=== PATIENT | female | born 1950 | race Caucasian/White ===

== ENCOUNTER → 2016-12-01 | Outpatient (CLI) | payer OTHER ==
[~2016-12-01] MED LIST: BP PILL; OMEP40CA PO; SERT50TA PO
--- NOTE | 2016-12-02 07:44 | MAMMOGRAPHY REPORT ---
BILATERAL DIGITAL SCREENING MAMMOGRAM WITH CAD: 12/01/2016 CLINICAL HISTORY: Routine screening. Patient has no complaints. TECHNIQUE: Bilateral CC, MLO and repeat right cc views were obtained. Current study was also evaluat ed with a Computer Aided Detection (CAD) system. COMPARISON: Comparison is made to exams dated: 11/29/2015 mammogram, 11/27/2014 mammogram, 11/24/2013 mamm ogram, 10/26/2012 mammogram, 10/22/2011 mammogram, and 10/14/2010 mammogram - [facility] BREAST COMPOSITION: The tissue of both breasts is almost entirely fatty. FINDINGS: There is stable focal asymmetry in the upper outer anterior right breast. Scattered benign -appearing punctate microcalcifications. No suspicious mass, architectural distortion or cluster of microcalcifications is seen. IMPRESSION: ACR BI-RADS CATEGORY 1: NEGATIVE There is no mammographic evidence of malignancy. A 1 year screening mammogram is recommended. The pa tient will receive written notification of the results. Approximately 10% of breast cancers are not detected with mammography. A negative mammographic report should not delay biopsy if a clinically suggestive mass is present. Ritika Green M.D. ay/:12/01/2016 15:30:24 Bacteriologist Dairy: Raquel Engel, [facility] letter sent: Normal 1/2 BI-RADS Code: ACR BI-RADS Category 1: Negative
== END | disposition home or self-care (01) ==
LOC: C.MAMM 10:37
PROVIDERS: ATTEND Obstetrics & Gynecology
DX: Z12.31 Encounter for screening mammogram for malignant neoplasm of breast (principal)

== ENCOUNTER → 2016-12-30 | Outpatient (CLI) | payer OTHER ==
[2016-12-30 14:02] LABS: BASO % 0.4 %; BASO ABS # 0.02 K/uL (0-0.2); COMPLETE YES; EOS % 1.8 %; HEMATOCRIT 39.1 % (37-47); IG% 0.2 %; LYMPH % 37.5 %; LYMPH ABS # 2.13 K/uL (1.2-3.4); MEAN CELL VOLUME 82.1 fL (80-100); MEAN CORPUSCULAR HEMOGLOBIN 27.1 pg (25-34); MEAN PLATELET VOLUME 9.8 fL (7.4-10.4); MONO % 6.9 %; NEUT % 53.2 %; PLATELET COUNT 175 K/uL (130-400); RED BLOOD COUNT 4.76 M/uL (4.2-5.4); WHITE BLOOD COUNT 5.68 K/uL (4.8-10.8)
[2016-12-30 14:17] LABS: ESTIMATED AVERAGE GLUCOSE 105 mg/dl; HA1C FLAG Normal (Normal)
[2016-12-30 14:31] LABS: ALT/SGPT 22 U/L (12-78); AST/SGOT 15 U/L (15-37); BLOOD UREA NITROGEN 12 mg/dl (7-18); BUN/CREATININE RATIO 13.3 (10-20); CALCIUM 9.5 mg/dl (8.5-10.1); CARBON DIOXIDE 28 mmol/L (21-32); CHLORIDE 107 mmol/L (98-107); CHOLESTEROL 208 mg/dl (0-200); CREATININE 0.92 mg/dl (0.60-1.20); GLUCOSE 104 mg/dl (70-99); POTASSIUM 3.9 mmol/L (3.5-5.1); SODIUM 142 mmol/L (136-145); TRIGLYCERIDES 189 mg/dl (0-150); VERY LOW DENSITY LIPOPROT CALC 38 mg/dl
[2016-12-30 14:42] LABS: ALKALINE PHOSPHATASE 92 U/L (45-117); CHOLESTEROL/HDL RATIO 4.2; HDL CHOLESTEROL 50 mg/dl; LDL CHOLESTEROL CALCULATED 120 mg/dl
--- NOTE | 2017-01-13 06:37 | CODING QUERY MEDICAL NECESSITY ---
SUPPORTING DIAGNOSIS NEEDED Dr. Ruiz, A supporting diagnosis is required for the test/procedure performed on this patient in order for us to be reimbursed by the patient's insurance. Please provide a supporting diagnosis for the following test/procedure listed below next to the test name along with your signature. *If there is no additional diagnosis for this patient that would support the following test/procedure please document that below next to the test/procedure. Test(s)/Procedure(s) that require a supporting diagnosis: * 54360 GLYCATED HEMOGLOBIN DIAGNOSIS: DATE OF SERVICE: 12/30/16 Provider Signature: Date: Thank you Luis Antonio Marquez [facility] Information Management Once completed, please kindly fax back to [phone] For questions please call [phone]
== END | disposition home or self-care (01) ==
LOC: C.LABBC 09:48
PROVIDERS: ATTEND Internal Medicine
DX: E55.9 Vitamin D deficiency, unspecified (principal); R73.01 Impaired fasting glucose

== ENCOUNTER → 2017-01-19 | Outpatient (CLI) | payer OTHER ==
--- NOTE | 2017-01-19 12:19 | DIAGNOSTIC IMAGING REPORT ---
L KNEE 3 VIEWS HISTORY: 66 years-old Female Osteoarthritis of left kneeleft acute left knee pain for 2 months. Initial exam. COMPARISON: None available. TECHNIQUE: 3 views of the left knee. FINDINGS: Bones are mildly demineralized. Mild tricompartmental osteoarthritis is noted, most pronounced in the medial and patellofemoral compartments. There is spurring of the superior patella at the quadriceps insertion site. There is a small joint effusion. No acute fracture or dislocation. IMPRESSION: 1. No acute fracture or dislocation. 2. Small joint effusion with mild tricompartmental osteoarthritis. The above report was generated using voice recognition software. It may contain grammatical, syntax or spelling errors. Electronically signed by: Richie Mercedes M.D. 01/19/2017 12:18 PM Dictated Date/Time: 01/19/2017 12:17 PM
== END | disposition home or self-care (01) ==
LOC: C.RADBC 11:56
PROVIDERS: ATTEND Internal Medicine
DX: M17.12 Unilateral primary osteoarthritis, left knee (principal)

== ENCOUNTER → 2017-12-03 | Outpatient (CLI) | payer OTHER ==
--- NOTE | 2017-12-03 15:28 | MAMMOGRAPHY REPORT ---
BILATERAL DIGITAL SCREENING MAMMOGRAM TOMOSYNTHESIS WITH CAD: 12/03/2017 CLINICAL HISTORY: Routine screening. Patient has no complaints. TECHNIQUE: The study was acquired using full field digital technology and interpreted from soft copy. Breast tomosynthesis in addition to standard 2D mammography was performed. Current study was also ev aluated with a Computer Aided Detection (CAD) system. COMPARISON: Comparison is made to exams dated: 12/01/2016 mammogram, 11/29/2015 mammogram, 11/27/2014 mamm ogram, 10/26/2012 mammogram, and 10/14/2010 mammogram - [facility]. BREAST COMPOSITION: The tissue of both breasts is almost entirely fatty. FINDINGS: No suspicious masses, calcifications, or areas of architectural distortion are noted in either breast . There has been no significant interval change compared to prior exams. Scattered bilateral benign-a ppearing calcifications are not significantly changed. Asymmetry in the right superior anterior esvin st is stable compared to prior exams. IMPRESSION: ACR BI-RADS CATEGORY 2: BENIGN There is no mammographic evidence of malignancy. A 1 year screening mammogram is recommended.( [id number]) The patient will receive written notification of the results. Some breast cancers are not detected with mammography. A negative mammographic report should not pauline y biopsy if a clinically suggestive mass is present. Roseanna Montana M.D. /:12/03/2017 14:22:53 County Records Management Officer: RT Benji(Bertha)(M), [facility] letter sent: Normal 1/2 BI-RADS Code: ACR BI-RADS Category 2: Benign
== END | disposition home or self-care (01) ==
LOC: C.MAMM 10:33
PROVIDERS: ATTEND Obstetrics & Gynecology
DX: Z12.31 Encounter for screening mammogram for malignant neoplasm of breast (principal)

== ENCOUNTER 2018-11-01 11:48 | Inpatient (IN) ==
--- NOTE | 2018-10-07 15:34 | PAT Medication Instructions ---
Medication Instructions Date of Service October 07, 2018 Home Medications cholecalciferol (vitamin D3) [Vitamin D3] 4 tab PO QAM cyanocobalamin (vitamin B-12) [Vitamin B-12] 1,000 mcg PO QAM lisinopril-hydrochlorothiazide 0.5 tab PO QAM omeprazole 40 mg PO QAM sertraline 50 mg PO QAM rosuvastatin [Crestor] 10 mg PO QAM DO NOT take the morning of surgery cholecalciferol (vitamin D3) [Vitamin D3] 4 tab PO QAM cyanocobalamin (vitamin B-12) [Vitamin B-12] 1,000 mcg PO QAM lisinopril-hydrochlorothiazide 0.5 tab PO QAM Take morning of surgery With a small sip of water, OTHERWISE NOTHING TO EAT OR DRINK AFTER MIDNIGHT: omeprazole 40 mg PO QAM sertraline 50 mg PO QAM rosuvastatin [Crestor] 10 mg PO QAM Other Notes If you have any questions please call us at [phone] or [phone] or [phone] or [phone]
--- NOTE | 2018-10-10 12:16 | Anesthesiology Consultation ---
Date of Service October 10, 2018 Assessment & Plan (1) Encounter for pre-operative examination: Discussed B/L versus staged TKA with patient; patient wishes to proceed with B/L TKA. Chart Review Chart Review: Acceptable Risk for Surgery and Patient seen in Pre Admission Testing Teaching & Discussion Pre-Anesthesia Teaching/Discussion Notes: Instructed NPO after midnight before surgery,except medications with 15 cc of water. Medication instructions provided according to the PAT guidelines. History Surgery Operation Date: 11/01/18 13:55 Proposed Procedures p Bilateral Total Knee Replacements - Navarro Smiley DO Height/Weight Height: 5 ft 3.5 in Weight: 99.2 kg Allergies Allergy/AdvReac Type Severity Reaction Status Date / Time Sulfa (Sulfonamide Allergy Intermediate HIVES Verified 10/04/18 08:52 Antibiotics) adhesive Allergy Mild Rash Verified 10/04/18 08:53 nickel Allergy Mild RASH, EAR Verified 10/10/18 12:16 SORENESS Additional Notes: *Surgeon/OR made aware of nickel allergy* Medications Home Medications Medication Instructions Recorded Confirmed Last Taken cholecalciferol (vitamin D3) 4 tab PO QAM 04/13/18 10/04/18 Unknown [Vitamin D3] cyanocobalamin (vitamin B-12) 1,000 mcg PO QAM 04/13/18 10/04/18 Unknown [Vitamin B-12] lisinopril-hydrochlorothiazide 0.5 tab PO QAM 04/13/18 10/04/18 Unknown omeprazole 40 mg PO QAM 04/13/18 10/04/18 Unknown sertraline 50 mg PO QAM 04/13/18 10/04/18 Unknown rosuvastatin [Crestor] 10 mg PO QAM 10/04/18 10/04/18 Unknown Past Medical History Medical History Anxiety Cancer SKIN (BACK); NO CHEMO OR RADIATION Depression GERD (gastroesophageal reflux disease) CONTROLLED Hiatal hernia Hyperlipidemia Hypertension Osteoarthritis Sleep apnea CPAP Exercise / Class Metabolic Activity III < 4 Walking/Shop/Light housework (USES CANE PRN) Past Surgical History Surgical History History of section x1 History of esophagogastroduodenoscopy (EGD) History of open reduction and internal fixation (ORIF) procedure LEFT ANKLE Hx of arthroscopy of left knee 05/05/18: LMA#4 at [facility] Hx of colonoscopy Past Anesthesia History No Hx of Anesthesia Complications and No Family Hx of Anesthesia Complications History of PONV No Hx of PONV and No Hx of Motion Sickness Social History Smoking Status: Never smoker Do You Dip or Chew Tobacco: No Hx Alcohol Use: Yes Alcohol type: wine alcohol intake frequency: holidays/special occasions only Hx Substance Use: No substance use type: does not use Review of Systems Reflux controlled. Patient denies chest pain, shortness of breath, cough, wheezing, palpitations. Physical Exam Vital Signs VITALS BP 133/81 P 63 TEMP 98.6 SP02 95%RA RESP 16 PHYSICAL Full neck and c-spine range of motion. Full TMJ range of motion. TMD 3 finger breaths Mallampati Score 3 Dentition: intact Lungs: clear throughout to auscultation Cardiac: regular rate and rhythm, no murmurs noted Spine: normal Carotid arteries: negative bruit Extremities: no edema Testing Laboratory Results 10/10/18 12:37 10/10/18 12:37 PT 10.7 Seconds (9.0-12.0) 10/10/18 12:37 INR 1.0 (0.9-1.1) 10/10/18 12:37 APTT 25.2 Seconds (21.0-31.0) 10/10/18 12:37 Blood Type O Positive 10/10/18 12:37 Antibody Screen NEGATIVE 10/10/18 12:37 Electrocardiogram Date: 04/21/18 NSR at 75bpm. NS STA. Chest X-Ray Date: 10/10/18 Findings: + NAD Atherosclerosis of the aortic arch. Calcified granuloma in the periphery of the right upper lung.
--- NOTE | 2018-10-10 13:03 | XRay Report ---
XR chest Pre-admission PA/Lat CLINICAL HISTORY: 67 years-old Female presenting with preoperative evaluation. TECHNIQUE: PA and lateral views of the chest were obtained. COMPARISON: 06/11/2014. FINDINGS: Atherosclerosis of the aortic arch. Cardiac silhouette normal in size. Calcified granuloma in the per iphery of the right upper lung. Lungs and pleural spaces otherwise clear. Degenerative changes of the thoracic spine. Upper abdomen normal. IMPRESSION: 1. No acute cardiopulmonary disease. Electronically signed by: Brady Black M.D. 10/10/2018 1:02 PM
[2018-10-10 13:04] LABS: Basophils # (auto) 0.02 K/uL (0-0.2); Basophils % (auto) 0.4 %; Eosinophils # (auto) 0.04 K/uL (0-0.5); Eosinophils % (auto) 0.7 %; Hematocrit (blood only) 37.3 % (37-47); Hemoglobin 12.4 g/dL (12.0-16.0); Lymphocytes # (auto) 2.05 K/uL (1.2-3.4); Lymphocytes % (auto) 36.2 %; Mean Corpuscular Hgb Conc 33.2 g/dL (32-36); Mean Corpuscular Volume 82.3 fL (80-100); Mean Platelet Volume 9.9 fL (7.4-10.4); Monocytes # (auto) 0.36 K/uL (0.11-0.59); Monocytes % (auto) 6.4 %; Neutrophils # (auto) 3.19 K/uL (1.4-6.5); Neutrophils % (auto) 56.3 %; Platelet Count 164 K/uL (130-400); RDW Coefficient of Variation 14.1 % (11.5-14.5); RDW Standard Deviation 42.6 fL (36.4-46.3); Red Blood Count 4.53 M/uL (4.2-5.4); White Blood Count 5.66 K/uL (4.8-10.8)
[2018-10-10 13:11] LABS: BUN Creatinine Ratio 16.8 (10-20); Calcium 9.5 mg/dl (8.5-10.1); Creatinine Clr Calc Pharmacy 64.5 ml/min; Est GFR (African American) 70.9; Est GFR (Non-African American) 61.2; Potassium 4.1 mmol/L (3.5-5.1)
[2018-10-10 13:16] LABS: Partial Thromboplastin Ratio 0.9; Partial Thromboplastin Time 25.2 Seconds (21.0-31.0); Prothrombin Time 10.7 Seconds (9.0-12.0)
--- NOTE | 2018-10-31 16:50 | History & Physical Report ---
Date of Service October 31, 2018 Assessment & Plan (1) Osteoarthritis of both knees: We will proceed with bilateral total knee arthroplasties. Postoperatively she will be kept overnight in the hospital for postop medical management. She plans to go to [facility] rehab after she is discharged from the hospital and then use [facility] physical therapy afterwards. Present on Admission?: Yes History of Present Illness Chief Complaint: Primary osteoarthritis of bilateral knees Primary Care Provider: Brady Ruiz MD Macey is a pleasant 67-year-old female who is been dealing with chronic increasing bilateral knee pain. I did a left knee arthroscopy on her about 6 months ago. During that time it showed a lot of osteoarthritis of the knee. The arthritis during the knee scope has looked worse than the arthritis on the x-rays. Both her knees feel similar. She is having trouble living with her knees at this point. She has elected to proceed with bilateral total knee arthroplasties. Allergies Allergy/AdvReac Type Severity Reaction Status Date / Time Sulfa (Sulfonamide Allergy Intermediate HIVES Verified 10/04/18 08:52 Antibiotics) adhesive Allergy Mild Rash Verified 10/04/18 08:53 nickel Allergy Mild RASH, EAR Verified 10/10/18 12:16 SORENESS Home Medications Home Medications Medication Instructions Recorded Confirmed Type cholecalciferol (vitamin D3) 4 tab PO QAM 04/13/18 10/04/18 History [Vitamin D3] cyanocobalamin (vitamin B-12) 1,000 mcg PO QAM 04/13/18 10/04/18 History [Vitamin B-12] lisinopril-hydrochlorothiazide 0.5 tab PO QAM 04/13/18 10/04/18 History omeprazole 40 mg PO QAM 04/13/18 10/04/18 History sertraline 50 mg PO QAM 04/13/18 10/04/18 History rosuvastatin [Crestor] 10 mg PO QAM 10/04/18 10/04/18 History Past Med/Surg History Medical History Anxiety Cancer SKIN (BACK); NO CHEMO OR RADIATION Depression GERD (gastroesophageal reflux disease) CONTROLLED Hiatal hernia Hyperlipidemia Hypertension Osteoarthritis Sleep apnea CPAP Surgical History History of section x1 History of esophagogastroduodenoscopy (EGD) History of open reduction and internal fixation (ORIF) procedure LEFT ANKLE Hx of arthroscopy of left knee 05/05/18: LMA#4 at [facility] Hx of colonoscopy Social History Preferred Language: Irish Communication Ability: Effective 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 Beliefs That Will Affect Care: None Current Living Situation: Alone Other Information That Helps Us Care for You: No Feels Safe at Home: Yes Safety Concerns: Feels Safe At This Time Smoking Status: Never smoker Do You Dip or Chew Tobacco: No Second Hand Exposure: No Tobacco Cessation Education Requested by Patient: No Hx Alcohol Use: Yes Alcohol type: wine Hx Substance Use: No Review of Systems All systems reviewed & are unremarkable except as noted in HPI & below Physical Exam Constitutional: WD/WN, vitals as above Eyes: PERRL, conjunctivae normal, anicteric sclerae ENMT: external ear and nose normal, oropharynx normal Neck: trachea midline, no thyromegaly Respiratory: normal respiratory effort Cardiovascular: RRR, no murmur, no edema Gastrointestinal (Abdomen): normal bowel sounds, soft, nontender, no hepatosplenomegaly Musculoskeletal: Physical examination of both knees are similar. There is a trace effusion. There is near full range of motion and no evidence of inst ability. There is significant tenderness palpation along mostly the medial joint line and distal medial femoral condyles. Psychiatric: A+Ox3, euthymic affect Results & Data Diagnostic Findings Radiographs of both knees demonstrate advanced osteoarthritis with joint space narrowing osteophyte formation and [id number] articulation.
--- NOTE | 2018-11-01 11:42 | History & Physical Bridge Note ---
Date of Service November 01, 2018 History & Physical Bridge Note I have examined the patient, reviewed the History & Physical and in the interval since the performance of the History & Physical I have noted the following changes of clinical significance: no changes noted
[~2018-11-01 11:48] MED LIST changes: +ACETAMINOPHEN 500 MG TAB PO SCH; -BP PILL; +BUPIVACAINE 0.5 % 5 MG/1 ML PF 10ML VIAL ONE; +CEFAZOLIN 2000MG 2,000 MG/15 ML SYR IV SCH; +FAMOTIDINE 20 MG TAB PO SCH; +GABAPENTIN 900 MG DOSE PO SCH; +LIDOCAINE HCL 2% 2 ML VIAL/AMP(20MG/ML) INFIL ONE; +LR 500ML BOLUS IV SCH; +LR 500ML BOLUS, THEN 15ML/HR IV SCH; +LR 60ML/HR IV SCH; +MIDAZOLAM HCL 1 MG/ML 2ML VIAL ONE; -OMEP40CA PO; +PROPOFOL IV EMULSION 10 MG/ML 20 ML VIAL IV ONE; +ROPIVACAINE 0.5% 5 MG/ML 30 ML VIAL ONE; +ROPIVACAINE 0.5% HCL/PF 150 MG, BUPIVACAINE 0.5% MPF 30 ML, EPINEPHrine 30MG/30ML (OR U... INSTIL SCH; -SERT50TA PO; +TRANEXAMIC ACID 1,000 MG **IV Intra-op IV SCH; +TRANEXAMIC ACID 1,000 MG **IV Pre-op IV SCH; +fentaNYL citrate 100 MCG/2 ML VIAL ONE
[2018-11-01] MEDS ORDERED: ORTHO JOINT ANESTHETIC ONE (11:59)
[2018-11-01] MEDS ORDERED: ONDANSETRON INJ 2 MG/ML 2 ML VIAL ONE (12:05)
[2018-11-01] MEDS ORDERED: DEXAMETHASONE SOD INJ 4 MG/ML VIAL ONE (12:05)
[2018-11-01] MEDS ORDERED: ONDANSETRON INJ 2 MG/ML 2 ML VIAL IV PRN ×2 (12:56→17:48)
[2018-11-01] MEDS ORDERED: ATROPINE SULFATE 0.1 MG/ML 10ML SYR IV PRN (12:56)
[2018-11-01] MEDS ORDERED: ePHEDrine sulfate 50 MG/ML AMP IV PRN (12:56)
[2018-11-01] MEDS ORDERED: fentaNYL citrate 100 MCG/2 ML VIAL IV PRN (12:56)
[2018-11-01] MEDS ORDERED: PROPOFOL IV EMULSION 10 MG/ML 20 ML VIAL IV ONE ×4 (13:42→15:49)
[2018-11-01] MEDS ORDERED: ePHEDrine sulfate 50 MG/ML SYR ONE (13:59)
[2018-11-01] MEDS ORDERED: PHENYLEPHRINE 100MCG/ML 5ML SYR ONE (13:59)
--- NOTE | 2018-11-01 16:12 | Operative Report ---
Post Operative Report Pre & Post Diagnosis Operation Date: 11/01/18 13:55 Pre-Op Diagnosis: Bilateral Knee Degenerative Joint Disease Post-Op Diagnosis: Bilateral Knee Degenerative Joint Disease Procedure Operation Date: 11/01/18 13:55 Actual Procedures p Bilateral Total Knee Replacements(Bilateral) - Navarro Smiley DO Surgeon Navarro Smiley DO Geriatric Care Manager Navarro Lombardo PAC Estimated Blood Loss 50 Findings Consistent with Post-Op Diagnosis Specimens Femoral and tibial bone bilateral knees Complications none Disposition Disposition: Recovery Room Indications Macey is a pleasant 67-year-old female who is been dealing with chronic increasing bilateral knee pain. X-rays and clinical examination have been diagnostic for osteoarthritis of both knees. After failing conservative treatment, she elected to proceed with bilateral total knee arthroplasties. Description of Procedure Implants used: I used a [employer] Vanguard total knee arthroplasty system with a size 62.5 femur, 67 tibia, 31 patella, and a size 12 polyethylene bearing on the right and a size 10 polyethylene bearing on the left. All components were cemented in place with Palacos G cement. The patient arrived [facility] for the above procedure. There were seen in the preoperative holding area and the operative extremity was identified and signed. There were given a preoperative antibiotic, a spinal anesthetic and an adductor nerve block. There were taken back to the operating room and laid on the table in supine position. There were given basic sedation. Both knees were then prepped and draped in sterile fashion. A timeout was done, and the patient and the operative extremity was properly identified. The right knee was done first. A midline incision was made directly over the patella. Dissection was taken down to the extensor mechanism. A subvastus arthrotomy was used. The medial retinaculum was released and the fat pad was mostly left intact. The knee was flexed and the ACL, PCL, and meniscus were removed. A drill was sent down the center of the femoral canal followed by an intramedullary bill. Off that bill a distal femoral cutting block was placed. 9 mm was resected off the distal femur at 5 of valgus. A posterior referencing AP sizing guide was then placed on the distal femur. The femur measured to be a size 62.5. 2 drill holes were placed in 3 of external rotation. A 4-in-1 cut ting block was then impacted into place. Anterior posterior and chamfer cuts were then made. The posterior stabilizing box guide was then impacted into place and the box was resected for the posterior stabilizing component. The proximal tibia was then exposed. A drill was sent down the center of the tibial canal followed by an intramedullary bill. Off that bill a proximal tibial resection guide was placed. The proximal tibia was then resected. The tibia measured to be a size 67. The tibial plate was then placed in the appropriate rotation and the tibia was punched. The posterior aspect of the knee was then opened up and any additional meniscus fragments and osteophytes were removed. Trial components were then placed. I used a size 12 mm polyethylene insert. The knee was brought through a full range of motion and felt to be stable. The patella was then everted and 8 mm was resected off the posterior aspect of the patella. The patella measured to be a size 31. 3 peg holes were then drilled. A trial patella was placed. The knee was once again brought through a full range of motion and felt to be stable. Trial components were then removed. The surrounding soft tissues were injected with 50 cc of an orthopedic pain control cocktail. All components were then cemented into place with Palacos G cement. The final polyethylene insert was then snapped into place and the anterior bar was locked. Once cement was dry the tourniquet was deflated. Hemostasis was obtained. A dilute betadyne lavage was then done for 3 minutes. The joint was then irrigated with normal s randee solution. The subvastus arthrotomy was then closed with #1 Vicryl suture. The skin was closed with 2-0 Vicryl, 3-0V lock suture, and ganesh. A soft compressive dressing was placed. The left knee was then done in a similar fashion. The only difference was that I used a size 10 mm polyethylene insert. The patient was then transferred to a hospital bed and taken to the postanesthesia care unit in stable condition. They tolerated the procedure well. I attest to the content of the Intraoperative Record and any orders documented therein. Any exceptions are noted below.
--- NOTE | 2018-11-01 17:05 | XRay Report ---
XR knee RT 2V routine, XR knee LT 2V routine HISTORY: 67 years-old Female Surgical Post Op bilateral total joint arthroplasties of the knees. COMPARISON: Knee radiographs 09/14/2018 TECHNIQUE: 2 views of the right and 2 views of the left knee FINDINGS: RIGHT: Right knee total joint arthroplasty and patella resurfacing demonstrates satisfactory alignment witho ut acute fracture or retained foreign body. Anterior midline skin ganesh with expected postsurgical soft tissue swelling and deep tissue air with surgical drainage catheter in place. LEFT: Left knee total joint arthroplasty and patella resurfacing demonstrates satisfactory alignment withou t acute fracture or retained foreign body. Anterior midline skin ganesh with expected postsurgical s oft tissue swelling and deep tissue air with surgical drainage catheter in place. IMPRESSION: Bilateral knee total joint arthroplasty and patella resurfacing with expected postoperati ve findings. The above report was generated using voice recognition software. It may contain grammatical, syntax o r spelling errors. Electronically signed by: Richie Mercedes M.D. 11/01/2018 5:03 PM
[2018-11-01] MEDS ORDERED: ACETAMINOPHEN 1000 MG/100 ML IV IV ONE (17:15)
--- NOTE | 2018-11-01 17:15 | Anesthesiology Progress Note ---
Date of Service November 01, 2018 Anesthesia Post Procedure Vital Signs Vital Signs: Temp Pulse Pulse Resp BP Pulse Ox 11/01/18 17:05 78 16 147/72 H 95 11/01/18 16:55 76 15 128/70 94 11/01/18 16:45 79 16 113/77 95 11/01/18 16:35 36.1 C L 85 16 110/84 97 11/01/18 12:16 36.9 C 76 20 149/56 H 94 Transfer of Care Handoff Completed per policy Notes Mental Status: alert / awake / arousable Patient Amnestic to Procedure: Yes Nausea / Vomiting: adequately controlled Pain: adequately controlled Airway Patency, RR, SpO2: stable & adequate BP & HR: stable & adequate Hydration State: stable & adequate Neuraxial Anesthesia: was administered and sensory block is resolving Anesthetic Complications: no major complications apparent and Pt Satisfied with anesthetic care
[2018-11-01] MEDS ORDERED: HYDROmorphone INJ 0.5 MG/0.5 ML SYR IV PRN (17:48)
[2018-11-01] MEDS ORDERED: BISACODYL 10 MG SUPP PR PRN (17:48)
[2018-11-01] MEDS ORDERED: NALOXONE HCL 0.4 MG/1 ML VIAL/CARP IV PRN (17:48)
[2018-11-01] MEDS ORDERED: METOCLOPRAMIDE HCL INJ 5 MG/ML 2 ML VIAL IV PRN (17:48)
[2018-11-01] MEDS ORDERED: MAGNESIUM HYDROXIDE SUSP 30 ML UDC PO PRN (17:48)
[2018-11-01] MEDS: SODIUM CHLORIDE 0.9% 1000ML 1,000 ML IV SCH (18:47)
[2018-11-01] MEDS: KETOROLAC TROMETHAMINE 15 MG/ML VIAL IV SCH (18:47)
[2018-11-01] MEDS: CEFAZOLIN 2000MG 2,000 MG/15 ML SYR IV SCH (21:10)
[2018-11-01] MEDS: ASPIRIN 81 MG ECTAB PO SCH (21:10)
[2018-11-01] MEDS: SENNA 8.6 MG TAB PO SCH (21:10)
[2018-11-01] MEDS: DOCUSATE SODIUM 100 MG CAP PO SCH (21:10)
[2018-11-01] MEDS ORDERED: ACETAMINOPHEN 500 MG TAB PO SCH (22:00)
[2018-11-02] MEDS: KETOROLAC TROMETHAMINE 15 MG/ML VIAL IV SCH ×4 (00:13→17:41)
[2018-11-02] MEDS: SODIUM CHLORIDE 0.9% 1000ML 1,000 ML IV SCH (04:22)
[2018-11-02] MEDS: ACETAMINOPHEN 500 MG TAB PO SCH ×3 (04:26→21:07)
[2018-11-02] MEDS: CEFAZOLIN 2000MG 2,000 MG/15 ML SYR IV SCH (04:26)
--- NOTE | 2018-11-02 06:37 | Orthopedic Progress Note ---
Date of Service November 02, 2018 Assessment & Plan (1) Osteoarthritis of both knees: Overall she is doing very well. She does not have any much pain in the knees. She will be seen by physical therapy today for ambulation. She is on aspirin for DVT prophylaxis. We will continue SELWYN hose stockings and SCDs. We will keep her in the hospital today. [facility] plans [facility] or a long term facility hopefully by tomorrow. Present on Admission?: Yes Michele Choudhury was seen and examined at bedside this morning. Overall she is doing very well. She is not having much pain in her knees. She tried to walk a little bit yesterday but she says her knees gave out on her a little bit. She was able to get some sleep. She has no complaints. Physical Exam Musculoskeletal: On physical examination of both knees, the dressings are clean and dry. Her legs out in full extension. She is active dorsiflexion and plantarflexion of both ankles. Sensations intact throughout. Results & Data Vital Signs (Past 12 Hours) Vital Signs Temp Pulse Resp BP Pulse Ox 11/02/18 03:17 36.5 C 73 18 100/65 93 11/01/18 23:24 36.6 C 80 18 97/62 L 94 11/01/18 20:49 36.5 C 85 17 122/75 96 11/01/18 19:54 36.6 C 87 17 118/71 96 11/01/18 18:45 83 16 130/78 98 Diagnostic Findings Postoperative x-rays of both knees show the prosthesis to be in anatomic alignment without any evidence of fracture, dislocation, or loosening.
[2018-11-02 06:43] LABS: Hematocrit (blood only) 30.4 % (37-47); Hemoglobin 9.9 g/dL (12.0-16.0); Mean Corpuscular Hgb Conc 32.6 g/dL (32-36); Mean Corpuscular Volume 82.2 fL (80-100); Mean Platelet Volume 9.9 fL (7.4-10.4); Platelet Count 163 K/uL (130-400); RDW Coefficient of Variation 14.2 % (11.5-14.5); RDW Standard Deviation 42.9 fL (36.4-46.3); White Blood Count 9.59 K/uL (4.8-10.8)
[2018-11-02 07:19] LABS: Calcium 8.2 mg/dl (8.5-10.1); Creatinine Clr Calc Pharmacy 57.8 ml/min; Est GFR (African American) 62.2; Est GFR (Non-African American) 53.7
--- NOTE | 2018-11-02 08:02 | Anesthesiology Progress Note ---
Date of Service November 02, 2018 Anesthesia Post Procedure Vital Signs Vital Signs: Temp Pulse Pulse Resp BP BP Pulse Ox 11/02/18 07:15 36.6 C 76 18 93/59 L 86/46 L 93 11/02/18 03:17 36.5 C 73 18 100/65 93 11/01/18 23:24 36.6 C 80 18 97/62 L 94 11/01/18 20:49 36.5 C 85 17 122/75 96 11/01/18 19:54 36.6 C 87 17 118/71 96 11/01/18 18:45 83 16 130/78 98 11/01/18 18:15 36.5 C 80 16 110/66 98 11/01/18 18:10 36.4 C L 78 16 124/77 97 11/01/18 17:30 76 14 130/69 96 11/01/18 17:15 36.4 C L 77 15 137/75 96 11/01/18 17:05 78 16 147/72 H 95 11/01/18 16:55 76 15 128/70 94 11/01/18 16:45 79 16 113/77 95 11/01/18 16:35 36.1 C L 85 16 110/84 97 11/01/18 12:16 36.9 C 76 20 149/56 H 94 Pain Intensity Head: Pain Intensity: 1 Notes Mental Status: alert / awake / arousable and participated in evaluation Patient Amnestic to Procedure: Yes Nausea / Vomiting: adequately controlled Pain: adequately controlled Airway Patency, RR, SpO2: stable & adequate BP & HR: stable & adequate Hydration State: stable & adequate Neuraxial Anesthesia: was administered and sensory block resolved Anesthetic Complications: no major complications apparent and Pt Satisfied with anesthetic care
[2018-11-02] MEDS: LISINOPRIL/HCTZ 10/12.5MG TAB PO SCH (08:07)
[2018-11-02] MEDS: DOCUSATE SODIUM 100 MG CAP PO SCH ×2 (09:10→20:28)
[2018-11-02] MEDS: MULTIVITAMIN TAB PO SCH (09:11)
[2018-11-02] MEDS: SERTRALINE HCL 50 MG TABLET PO SCH (09:11)
[2018-11-02] MEDS: ASPIRIN 81 MG ECTAB PO SCH ×2 (09:11→20:28)
[2018-11-02] MEDS: PANTOprazole 40 MG TAB PO SCH (09:11)
[2018-11-02] MEDS: ROSUVASTATIN CALCIUM 10 MG TAB PO SCH (09:12)
[2018-11-02] MEDS: OXYCODONE HCL IR 5 MG TAB (IMMEDIATE RELEASE) PO PRN (09:12)
[2018-11-02] MEDS: SENNA 8.6 MG TAB PO SCH (20:28)
[2018-11-03] MEDS: KETOROLAC TROMETHAMINE 15 MG/ML VIAL IV SCH ×2 (00:04→05:26)
[2018-11-03] MEDS: ACETAMINOPHEN 500 MG TAB PO SCH (05:26)
--- NOTE | 2018-11-03 06:05 | Orthopedic Progress Note ---
Date of Service November 03, 2018 Assessment & Plan (1) Osteoarthritis of both knees: Overall she is doing fairly well. She will be seen by physical therapy this morning for further ambulation. She is on aspirin for DVT prophylaxis and oxycodone for pain control. She can be discharged to [facility] later today. She will follow-up with orthopedics in 2 weeks. Present on Admission?: Yes Michele Choudhury was seen and examined at bedside this morning. Overall she is doing fairly well. She was ambulating some yesterday with physical therapy. Is not having too much pain in the knees. She has no complaints. Physical Exam Musculoskeletal: On physical examination of both knees, the dressings have been changed. The legs are out in full extension. She has active dorsiflexion and plantarflexion of both ankles. Sensations intact throughout. Results & Data Vital Signs (Past 12 Hours) Vital Signs Temp Pulse Resp BP Pulse Ox 11/02/18 23:32 37.0 C 79 18 105/52 L 92
--- NOTE | 2018-11-03 06:07 | Discharge Summary ---
Date of Service November 03, 2018 Admission HPI Per Admitting Provider Macey is a pleasant 67-year-old female who is been dealing with chronic increasing bilateral knee pain. I did a left knee arthroscopy on her about 6 months ago. During that time it showed a lot of osteoarthritis of the knee. The arthritis during the knee scope has looked worse than the arthritis on the x-rays. Both her knees feel similar. She is having trouble living with her knees at this point. She has elected to proceed with bilateral total knee arthroplasties. Specialty Data Orthopedic H & H 10/10/18 11/02/18 Range/Units 12:37 06:09 Hgb 12.4 9.9 L (12.0-16.0) g/dL Hct 37.3 30.4 L (37-47) % Coagulation 10/10/18 Range/Units 12:37 INR 1.0 (0.9-1.1) Discharge Data Consultations 11/01/18 17:48 Consult Case Management - Discharge Planning Routine Procedures Performed Operation Date: 11/01/18 13:55 Actual Procedures p Bilateral Total Knee Replacements(Bilateral) - Navarro Smiley DO Hospital Course (1) Osteoarthritis of both knees: On November 01, 2018 Macey arrived at [facility] and underwent bilateral total knee arthroplasties without complication. She had a spinal anesthetic and bilateral adductor nerve blocks. Postoperatively she was discharged to general orthopedic floors. She was started on aspirin for DVT prophylaxis. Her hospital course is uneventful. On postop day #1 her H&H was stable and her pain was well controlled. She was able to ambulate well with physical therapy. On postop day #2 the dressings were changed. She continued to do well. She was then [facility] and will follow-up with orthopedics in 2 weeks. Discharge Instructions Home Medications Medication Instructions Recorded Confirmed cholecalciferol (vitamin D3) 4 tab PO QAM 04/13/18 11/01/18 [Vitamin D3] cyanocobalamin (vitamin B-12) 1,000 mcg PO QAM 04/13/18 11/01/18 [Vitamin B-12] lisinopril-hydrochlorothiazide 0.5 tab PO QAM 04/13/18 11/01/18 omeprazole 40 mg PO QAM 04/13/18 11/01/18 sertraline 50 mg PO QAM 04/13/18 11/01/18 rosuvastatin [Crestor] 10 mg PO QAM 10/04/18 11/01/18 Previous Rx's Medication Instructions Recorded aspirin [Ecotrin Low Strength] 81 mg PO BID #84 tab 11/03/18 oxycodone 5 mg PO Q4H PRN #40 tab 11/03/18
[2018-11-03] MEDS: OXYCODONE HCL IR 5 MG TAB (IMMEDIATE RELEASE) PO PRN (07:47)
[2018-11-03] MEDS: LISINOPRIL/HCTZ 10/12.5MG TAB PO SCH (08:59)
[2018-11-03] MEDS: SERTRALINE HCL 50 MG TABLET PO SCH (09:01)
[2018-11-03] MEDS: ASPIRIN 81 MG ECTAB PO SCH (09:01)
[2018-11-03] MEDS: MULTIVITAMIN TAB PO SCH (09:02)
[2018-11-03] MEDS: PANTOprazole 40 MG TAB PO SCH (09:02)
[2018-11-03] MEDS: ROSUVASTATIN CALCIUM 10 MG TAB PO SCH (09:02)
[2018-11-03] MEDS: DOCUSATE SODIUM 100 MG CAP PO SCH (09:02)
== END 2018-11-03 10:28 | DRG 462 ==
LOC: ASU 11:48 → 3E 16:41